=== PATIENT | female | born 2000 | race Caucasian/White ===

== ENCOUNTER 2020-12-11 15:04 | Emergency (ER) | payer OTHER ==
[2020-12-11 15:11] VITALS: BP 140/87
--- NOTE | 2020-12-11 15:32 | ED Physician Documentation ---
History of Present Illness - Stated complaint Stated Complaint: LEG SWELLING - Chief complaint Chief Complaint: Ext Problem - Additonal information Additional information: 20-year-old female presents the emergency department for evaluation of bilateral foot and ankle swelling that she noted last night when she got off of work. She also reports that the soles of her feet have been hurting. She shows a picture on her phone that shows bilateral pedal edema. She went to bed and woke up this morning and found that the pedal edema had improved though not fully resolved. She called the nurse advice line and they recommended follow-up here in the emergency department. She is new to [facility] and does not yet have a primary care provider. 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 She denies any previous history of foot pain or foot swelling. She denies chest pain or shortness of air. She has no posterior calf pain tenderness. No recent travel or immobilization. No history of oral hormone contraceptive use. No personal history of DVT or cancer. Review of Systems Constitutional: reports: Reviewed and negative Ears: reports: Reviewed and negative Nose: reports: Reviewed and negative Throat: reports: Reviewed and negative Cardiac: reports: Pedal edema. denies: Chest pain / pressure, Palpitations, Calf pain Respiratory: reports: Reviewed and negative GI: reports: Reviewed and negative Skin: reports: Reviewed and negative Musculoskeletal: reports: Reviewed and negative Neurologic: reports: Reviewed and negative PD PAST MEDICAL HISTORY - Allergies Allergies/Adverse Reactions: Allergies Allergy/AdvReac Type Severity Reaction Status Date / Time No Known Drug Allergies Allergy Verified 12/11/20 15:11 PD ED PE EXPANDED - General General: Alert, No acute distress, Other (Obese) - Cardiac Cardiac: Regular Rate, Radial strong equal, Pedal strong equal, Cap refill < 2 sec. No: Murmur Present - Respiratory Respiratory: Clear to ausultation scotty. No: Distress, Labored - Abdomen Abdomen: Normal Bowel sounds. No: Tender to palpation - Extremities Extremities: Pedal edema bilateral, Pedal Pulses Present. No: Right calf TTP/cord, Left calf TTP/cord - Neuro Neuro: Alert and Oriented X 3, CNII-XII intact - GCS Eye Opening: Spontaneous Motor: Obeys Commands Verbal: Oriented Total: 15 Results - Vitals Vitals: Vital Signs - 24 hr 12/11/20 15:07 Temperature 36.8 C Heart Rate 95 Respiratory 14 Rate Blood Pressure 140/87 H O2 Saturation 97 Oxygen O2 Source Room air - Labs Labs: Laboratory Tests 12/11/20 12/11/20 15:35 15:35 WBC 4.6 L RBC 4.16 L Hgb 12.4 Hct 37.2 MCV 89.4 MCH 29.8 MCHC 33.3 RDW 12.3 Plt Count 234 MPV 10.4 Neut # (Auto) 2.1 Lymph # (Auto) 2.0 [place] # (Auto) 0.3 Eos # (Auto) 0.1 Baso # (Auto) 0.0 Absolute Nucleated RBC 0.00 Nucleated RBC % 0.0 Sodium 139 Potassium 3.5 Chloride 104 Carbon Dioxide 24 Anion Gap 11.0 BUN 8 Creatinine 0.7 Estimated GFR (MDRD) 105 Glucose 124 H Calcium 9.2 PD MEDICAL DECISION MAKING - ED course Complexity details: reviewed results, re-evaluated patient, d/w patient ED course: This is a well-appearing 20-year-old female that presents to the emergency department for evaluation of acute onset pedal edema which she noted yesterday when she got home from work. The pedal edema have begun to resolve overnight but not fully david. There is no chest pain or shortness of air. Screening CBC showed no anemia. Pt has intact renal function. Cardiopulmonary exam unrevealing. no crackles, wheeze or hypoxia. Doubt CHF. Patient by Wells criteria is low risk for DVT therefore deferred ultrasound imaging. I suspect she likely has dependent edema related to her size as well as her job in which she must stand for long period of time. I have recommended that she buy compressive stockings and wear them at work. Symptoms are not improving she would benefit from follow-up with her primary care doctor in which consideration of an outpatient stress test and echocardiogram could be completed. Emergent return precautions discussed Departure - Departure Disposition: 01 Home, Self Care Clinical Impression: Pedal edema Condition: Stable Record reviewed to determine appropriate education?: Yes Comments: He has been you are seen in the emergency department today for swelling in both of your feet. This is called pedal edema. Your screening chemistry and blood count was normal. As we discussed I suspect that the cause of your swelling is most likely dependent edema from being upright and standing most of the day. I do not have any suspicion that you are in heart failure. I do recommend that you buy compression stockings at the pharmacy and wear these when you are at work. This will help improve the swelling and venous return. The foot pain could be plantar fasciitis. I recommend they take Tylenol [id number] for this. Please wear the same pair shoes while at work. You may benefit from a walking or tennis shoes which are made to support people that stand or walk a lot. Continue to follow-up with your primary care provider. If symptoms are not improving or foot pain is not improving you may benefit from referral to a recycling tech.
[2020-12-11 15:40] LABS: BASOPHILS % (AUTO) 0.4 %; EOSINOPHILS # (AUTO) 0.1 10^3/uL (0.0-0.7); EOSINOPHILS % (AUTO) 3.1 %; HCT - HEMATOCRIT 37.2 % (37.0-47.0); HGB - HEMOGLOBIN 12.4 g/dL (12.0-16.0); LYMPHOCYTES % (AUTO) 44.4 %; MEAN CORPUSCULAR HEMOGLOBIN 29.8 pg (27.0-31.0); MEAN CORPUSCULAR HGB CONC 33.3 g/dL (32.0-36.0); MEAN CORPUSCULAR VOLUME 89.4 fL (81.0-99.0); MEAN PLATELET VOLUME 10.4 fL (7.9-10.8); MONOCYTES # (AUTO) 0.3 10^3/uL (0.0-1.0); MONOCYTES % (AUTO) 6.8 %; NEUTROPHILS # (AUTO) 2.1 10^3/uL (1.5-6.6); NEUTROPHILS % (AUTO) 45.1 %; PLT - PLATELET COUNT 234 10^3/uL (130-450); RED BLOOD COUNT 4.16 10^6/uL (4.20-5.40); RED CELL DISTRIBUTION WIDTH 12.3 % (12.0-15.0); WHITE BLOOD COUNT 4.6 x10^3/uL (4.8-10.8)
[2020-12-11 15:50] LABS: CALCIUM 9.2 mg/dL (8.5-10.3); CREATININE 0.7 mg/dL (0.4-1.0); POTASSIUM 3.5 mmol/L (3.5-5.0)
== END 2020-12-11 16:23 | disposition home or self-care (01) ==
LOC: ED 15:04
DX: R60.0 Localized edema (principal); M79.672 Pain in left foot; M79.671 Pain in right foot
CPT/HCPCS: 36415; 80048; 85025; 99282; 99283

== ENCOUNTER 2021-04-04 15:44 | Emergency (ER) | payer OTHER ==
[2021-04-04 15:53] VITALS: BP 146/105
[2021-04-04 16:31] LABS: BASOPHILS % (AUTO) 0.7 %; EOSINOPHILS # (AUTO) 0.1 10^3/uL (0.0-0.7); EOSINOPHILS % (AUTO) 2.2 %; HCT - HEMATOCRIT 39.7 % (37.0-47.0); HGB - HEMOGLOBIN 13.6 g/dL (12.0-16.0); LYMPHOCYTES # (AUTO) 2.6 10^3/uL (1.5-3.5); LYMPHOCYTES % (AUTO) 48.6 %; MEAN CORPUSCULAR HEMOGLOBIN 30.5 pg (27.0-31.0); MEAN CORPUSCULAR HGB CONC 34.3 g/dL (32.0-36.0); MONOCYTES # (AUTO) 0.4 10^3/uL (0.0-1.0); MONOCYTES % (AUTO) 7.9 %; NEUTROPHILS # (AUTO) 2.2 10^3/uL (1.5-6.6); NEUTROPHILS % (AUTO) 40.6 %; PLT - PLATELET COUNT 276 10^3/uL (130-450); RED BLOOD COUNT 4.46 10^6/uL (4.20-5.40); RED CELL DISTRIBUTION WIDTH 12.4 % (12.0-15.0); WHITE BLOOD COUNT 5.4 x10^3/uL (4.8-10.8)
[2021-04-04 16:46] LABS: ALBUMIN/GLOBULIN RATIO 1.3 (1.0-2.2); BILIRUBIN,TOTAL 0.5 mg/dL (0.2-1.0); CALCIUM 9.3 mg/dL (8.5-10.3); CREATININE 0.7 mg/dL (0.4-1.0); POTASSIUM 3.7 mmol/L (3.5-5.0); TOTAL PROTEIN 7.2 g/dL (6.7-8.2)
[2021-04-04 17:15] LABS: HCG UR QUAL NEGATIVE
--- NOTE | 2021-04-04 17:25 | ED Physician Documentation ---
History of Present Illness - Stated complaint Stated Complaint: DIZZY,NAUSEA - Chief complaint Chief Complaint: Neuro - History obtained from History obtained from: Patient - Additonal information Additional information: 20 yo F presented with mild nausea and dizziness for several days. Sx started immediately after she took a new dose of her thyroid medication x 1. She denies any other sx, no fever, chills, cp, dyspnea, abd pain, diarrhea, urinary sx. She is on ocps and is due for period tomorrow, denies chance of . Denies history of anxiety. Review of Systems Ten Systems: 10 systems reviewed and negative Constitutional: reports: Reviewed and negative Eyes: reports: Reviewed and negative Ears: reports: Reviewed and negative Nose: reports: Reviewed and negative Throat: reports: Reviewed and negative Cardiac: reports: Reviewed and negative Respiratory: reports: Reviewed and negative GI: reports: Reviewed and negative : reports: Reviewed and negative Skin: reports: Reviewed and negative Musculoskeletal: reports: Reviewed and negative Neurologic: reports: Other (dizziness). denies: Generalized weakness, Focal weakness, Numbness, Difficulty speaking, Near syncope, Syncope, Seizure, Confused, Altered mental status, Unresponsive, Headache, Head injury, LOC Psychiatric: reports: Reviewed and negative Endocrine: reports: Reviewed and negative Immunocompromised: reports: Reviewed and negative PD PAST MEDICAL HISTORY - Allergies Allergies/Adverse Reactions: Allergies Allergy/AdvReac Type Severity Reaction Status Date / Time No Known Drug Allergies Allergy Verified 04/04/21 15:53 - Social History Does the pt smoke?: No Smoking Status: Never smoker PD ED PE NORMAL - Vitals Vital signs reviewed: Yes - General General: Alert and oriented X 3, No acute distress, Well developed/nourished - HEENT HEENT: Atraumatic, PERRL, EOMI, Ears normal, Moist mucous membranes, Pharynx b enign, Other (no nystagmua) - Neck Neck: Supple, no meningeal sign, No JVD - Cardiac Cardiac: RRR, No murmur, No gallop, No rub, Strong equal pulses - Respiratory Respiratory: No respiratory distress, Clear bilaterally - Abdomen Abdomen: Normal bowel sounds, Soft, Non tender, Non distended - Derm Derm: Normal color, Warm and dry, No rash - Extremities Extremities: No deformity, No tenderness to palpate, Normal ROM s pain, No edema, No calf tenderness / cord - Neuro Neuro: Alert and oriented X 3, No motor deficit, No sensory deficit, Normal speech, Other (normal gait) Eye Opening: Spontaneous Motor: Obeys Commands Verbal: Oriented GCS Score: 15 - Psych Psych: Normal mood, Normal affect Results - Vitals Vitals: Vital Signs - 24 hr 04/04/21 15:50 Temperature 36.1 C L Heart Rate 94 Respiratory 16 Rate Blood Pressure 146/105 H O2 Saturation 99 Oxygen O2 Source Room air - Labs Labs: Laboratory Tests 04/04/21 04/04/21 04/04/21 16:26 16:26 16:26 WBC 5.4 RBC 4.46 Hgb 13.6 Hct 39.7 MCV 89.0 MCH 30.5 MCHC 34.3 RDW 12.4 Plt Count 276 MPV 11.0 H Neut # (Auto) 2.2 Lymph # (Auto) 2.6 [place] # (Auto) 0.4 Eos # (Auto) 0.1 Baso # (Auto) 0.0 Absolute Nucleated RBC 0.00 Nucleated RBC % 0.0 Sodium 139 Potassium 3.7 Chloride 105 Carbon Dioxide 22 Anion Gap 12.0 BUN 9 Creatinine 0.7 Estimated GFR (MDRD) 105 Glucose 114 H Calcium 9.3 Total Bilirubin 0.5 AST 29 ALT 35 Alkaline Phosphatase 51 Total Protein 7.2 Albumin 4.0 Globulin 3.2 Albumin/Globulin Ratio 1.3 Lipase 29 TSH 2.73 Urine HCG, Qual 04/04/21 17:04 WBC RBC Hgb Hct MCV MCH MCHC RDW Plt Count MPV Neut # (Auto) Lymph # (Auto) [place] # (Auto) Eos # (Auto) Baso # (Auto) Absolute Nucleated RBC Nucleated RBC % Sodium Potassium Chloride Carbon Dioxide Anion Gap BUN Creatinine Estimated GFR (MDRD) Glucose Calcium Total Bilirubin AST ALT Alkaline Phosphatase Total Protein Albumin Globulin Albumin/Globulin Ratio Lipase TSH Urine HCG, Qual NEGATIVE PD MEDICAL DECISION MAKING - ED course Complexity details: reviewed results, re-evaluated patient, considered differential, d/w patient ED course: Pt presents w/ nausea and dizziness per report. Her physical exam is reassuring, her labs and vital signs are also reassuring. They do not point to any specific cause for her symptoms. I do not feel this is related to missing a dose of levothyroxine she took as her symptoms started simultaneously. I think there may be some degree of anxiety. In any case there are no acute findings on physical exam, patient is stable for discharge home. I provided reassurance to discuss supportive measures, advised her to follow-up with her primary care provider if she continues to have this symptom while taking the levothyroxine.Reviewed return precautions including severe headache, neuro changes, fever chills, neck pain or stiffness, or other new concerns. Departure - Departure Disposition: 01 Home, Self Care Clinical Impression: Dizziness, nonspecific Condition: Good Instructions: ED Dizziness UKO Comments: He presented with dizziness and nausea. Her physical exam is reassuring and her labs were also reassuring, your thyroid test is normal as well. You do not have a specific cause for your dizziness so this is often self-limiting. I do not think it is related to your change in serum medication as it typically takes some time to take effect. Please follow-up with your primary care provider if you have ongoing symptoms or return to the ER if you have new or worsening symptoms. Discharge Date/Time: 04/04/21 17:30
== END 2021-04-04 17:30 | disposition home or self-care (01) ==
LOC: ED 15:44
DX: R42 Dizziness and giddiness (principal)
CPT/HCPCS: 36415; 80053; 81025; 83690; 84443; 85025; 99283

== ENCOUNTER 2022-03-18 14:06 | Outpatient (CLI) | payer OTHER ==
--- NOTE | 2022-03-19 11:01 | MRI Report ---
PROCEDURE: Ankle RT W/O INDICATIONS: BILAT ANKLE AND FOOT PAIN TECHNIQUE: Noncontrast Magnetic Resonance Imaging (MRI) of the ankle/hindfoot was performed utilizing the follow ing sequences: sagittal T1 spin echo, sagittal T2 fast spin echo with fat saturation, axial PD fast s pin echo, axial T2 fast spin echo with fat saturation, coronal T2 spin echo with fat saturation. COMPARISON: None. FINDINGS: Image quality: Excellent. Bones and joints: No acute trabecular bone injury or fracture. No hindfoot coalition. The ankle mortise is maintained. No osteochondral defect is seen at the talar dome. No significant degenerative changes are seen in t he midfoot or hindfoot. There is a small nonedematous posterior calcaneal enthesophyte. Medial structures: The deltoid ligament and the spring ligament are intact. There is mild tenosynovitis and tendinosis o f the distal posterior tibialis tendon near its navicular insertion. The flexor digitorum longus and flexor hallucis longus tendons are intact. The posterior tibial neurovascular bundle appears normal w ithin the tarsal tunnel, without extrinsic mass effect. Lateral structures: The anterior and posterior distal tibiofibular ligaments are intact. The anterior talofibular ligamen t, posterior talofibular ligament, and calcaneofibular ligament are intact. The peroneus longus and p eroneus brevis tendons are intact and otherwise unremarkable. The sinus tarsi demonstrates normal fat ty signal. Anterior structures: The tibialis anterior, extensor hallucis longus, and extensor digitorum longus tendons appear intact. Posterior and plantar structures: The Achilles tendon is intact. The medial and lateral bands of the plantar fascia are within normal l imits. No disproportionate atrophy of the abductor digiti minimi muscle. IMPRESSION: Mild distal posterior tibialis tendinosis and tenosynovitis. Reviewed by: Russ Lisa MD on 03/19/2022 10:00 AM CRISTEL Approved by: Russ Lisa MD on 03/19/2022 10:00 AM CRISTEL Station ID: [id number]
--- NOTE | 2022-03-19 11:01 | MRI Report ---
PROCEDURE: Foot RT W/O INDICATIONS: BILAT FOOT AND ANKLE PAIN TECHNIQUE: Noncontrast sagittal T1 spin echo and T2 fast spin echo with fat saturation, long-axis T1 spin echo a nd STIR, short-axis T1 spin echo and T2 fast spin echo with fat saturation through the forefoot. COMPARISON: None. FINDINGS: Image quality: Excellent. Bones and joints: No bone marrow contusions or metatarsal stress fractures. The sesamoid bones appe ar in expected positions, without internal edema. Mild degenerative changes at the first metatarsopha langeal joint.. No intraosseous lesions. Soft tissues: The visualized plantar foot muscles demonstrate normal signal and bulk. Visualized fl exor and extensor tendons appear intact, without tenosynovitis. Small nonspecific intermetatarsal bur michael effusions throughout the forefoot. No suspicious interdigital mass. Sagittal images demonstrate n o evidence for plantar plate tears. IMPRESSION: 1.Mild first metatarsophalangeal joint osteoarthrosis. 2.No acute trabecular bone injury. No significant ligament or tendon injury. Reviewed by: Russ Lisa MD on 03/19/2022 9:59 AM CRISTEL Approved by: Russ Lisa MD on 03/19/2022 9:59 AM CRISTEL Station ID: [id number]
--- NOTE | 2022-03-19 11:02 | MRI Report ---
PROCEDURE: Foot LT W/O INDICATIONS: CHRONIC FOOT/ANKLE PAIN TECHNIQUE: Noncontrast sagittal T1 spin echo and T2 fast spin echo with fat saturation, long-axis T1 spin echo a nd STIR, short-axis T1 spin echo and T2 fast spin echo with fat saturation through the forefoot. COMPARISON: None. FINDINGS: Image quality: Excellent. Bones and joints: No bone marrow contusions or metatarsal stress fractures. The sesamoid bones appe ar in expected positions, without internal edema. There is minimal degenerative spurring at the dorsa l aspect of the second tarsometatarsal joint. Degenerative changes are seen at the first metatarsopha langeal joint. No intraosseous lesions. Soft tissues: The visualized plantar foot muscles demonstrate normal signal and bulk. Principal L[place] ranc ligament is intact. Visualized flexor and extensor tendons appear intact, without tenosynovitis. Small nonspecific intermetatarsal bursal fluid collections. No interdigital mass. Sagittal images de monstrate no evidence for plantar plate tears. IMPRESSION: 1.Mild first metatarsophalangeal joint osteoarthrosis. 2.No acute trabecular bone injury. No significant ligament or tendon injury is seen. Reviewed by: Russ Lisa MD on 03/19/2022 10:00 AM CRISTEL Approved by: Russ Lisa MD on 03/19/2022 10:00 AM CRISTEL Station ID: [id number]
--- NOTE | 2022-03-19 11:02 | MRI Report ---
PROCEDURE: Ankle LT W/O INDICATIONS: CHRONIC FOOT/ANKLE PAIN TECHNIQUE: Noncontrast Magnetic Resonance Imaging (MRI) of the ankle/hindfoot was performed utilizing the follow ing sequences: sagittal T1 spin echo, sagittal T2 fast spin echo with fat saturation, axial PD fast s pin echo, axial T2 fast spin echo with fat saturation, coronal T2 spin echo with fat saturation, and coronal T1 spin echo. COMPARISON: None. FINDINGS: Image quality: Excellent. Bones and joints: No acute trabecular bone injury or fracture. No hindfoot coalition. The ankle mortise is maintained. No osteochondral defect is seen at the talar dome. Small nonedematous posterior calcaneal enthesophy te. Medial structures: The deltoid ligament and the spring ligament are intact. Mild tendinosis and tenosynovitis of the dis artemio posterior tibialis tendon. The flexor digitorum longus tendon and flexor hallucis longus tendon a re intact. The posterior tibial neurovascular bundle appears normal within the tarsal tunnel, without extrinsic mass effect. Lateral structures: The anterior and posterior distal tibiofibular ligaments are intact. The anterior talofibular ligamen t, posterior talofibular ligament, and calcaneofibular ligament are intact. The peroneus longus and p eroneus brevis tendons demonstrate mild tendinosis. The sinus tarsi demonstrates normal fatty signal. Anterior structures: The tibialis anterior, extensor hallucis longus, and extensor digitorum longus tendons appear intact. Posterior and plantar structures: The Achilles tendon is intact. The medial and lateral bands of the plantar fascia are within normal l imits. No disproportionate atrophy of the abductor digiti minimi muscle. IMPRESSION: 1.Mild tendinosis and tenosynovitis of the distal posterior tibialis tendon. 2.Mild peroneus brevis and longus tendinosis. Reviewed by: Russ Lisa MD on 03/19/2022 10:01 AM CRISTEL Approved by: Russ Lisa MD on 03/19/2022 10:01 AM CRISTEL Station ID: [id number]
== END 2022-03-18 14:07 | disposition home or self-care (01) ==
LOC: DI 14:06
PROVIDERS: ATTEND Podiatrist
DX: M19.071 Primary osteoarthritis, right ankle and foot (principal); M65.9 Synovitis and tenosynovitis, unspecified; M19.072 Primary osteoarthritis, left ankle and foot